=== PATIENT | male | born 1945 | race Two or more races ===

== ENCOUNTER 2017-09-19 | Emergency (ER) | payer MEDICARE ==
[~2017-09-19] VITALS: Ht 170.2 cm; Wt 79.4 kg
[2017-09-19 00:10] VITALS: Ht 170.2 cm; Wt 79.4 kg
[2017-09-19 00:57] LABS: BASOPHIL % 0.3 % (0-2)
[2017-09-19 00:59] LABS: PLATELET COUNT 86 x10^3mcL (130-400); RED CELL DISTRIBUTION WIDTH 16.2 % (11.5-14.5)
[2017-09-19 01:16] LABS: CALCIUM 7.8 mg/dL (8.5-10.1); CHLORIDE SERUM 107 mmol/L (98-107); CREATININE SERUM 0.9 mg/dL (0.7-1.3); GFR1 > 60 mL/min; GLUCOSE SERUM 73 mg/dL (74-106); SODIUM SERUM 145 mmol/L (136-145)
[2017-09-19 01:21] LABS: ALKALINE PHOSPHATASE 62 U/L (46-116); ALT/SGPT 644 U/L (16-63); AST/SGOT 665 U/L (15-37); BILIRUBIN TOTAL 0.68 mg/dL (0.20-1.00); TOTAL PROTEIN, SERUM 6.6 g/dL (6.4-8.2)
[2017-09-19 02:54] VITALS: BP 140/82
== END 2017-09-19 02:54 | disposition home or self-care (01) ==
LOC: ED
PROVIDERS: Emergency Medicine
DX: T22.112A Burn of first degree of left forearm, initial encounter (principal); T22.111A Burn of first degree of right forearm, initial encounter; X08.8XXA Exposure to other specified smoke, fire and flames, initial encounter; Y93.89 Activity, other specified; Y92.89 Other specified places as the place of occurrence of the external cause; Y99.8 Other external cause status
CPT/HCPCS: 36415; G0480